=== PATIENT | female | born 1945 ===

== ENCOUNTER 2019-02-03 12:08 | Inpatient (IN) | payer MEDICARE, OTHER ==
[2019-02-03 12:09] VITALS: BMI 35.2
--- NOTE | 2019-02-03 12:42 | C.PDOC ---
History Of Present Illness 73 y/o female presents to the ED via ambulance for complaints of SOB and cough for 1 week. She was transferred from Dr. Gilman office today due to worsening SOB and wheezing. Of note, patient recently completed a course of antibiotics. She is s/p nebulizer treatments en route. On arrival to the ED patient reports feeling better. Otherwise she denies any fever, chills, abdominal pain, chest pain, calf pain or swelling. Time Seen by Provider: 02/03/19 12:41 Chief Complaint (Nursing): Shortness Of Breath History Per: Patient History/Exam Limitations: no limitations Onset/Duration Of Symptoms: Days Current Symptoms Are (Timing): Better Initiating Event: Upper Respiratory Illness Past Medical History Reviewed: Historical Data, Nursing Documentation, Vital Signs Vital Signs: Last Vital Signs Temp 98.3 F 02/03/19 12:20 Pulse 110 H 02/03/19 12:20 Resp 18 02/03/19 12:20 BP 112/77 02/03/19 12:20 Pulse Ox 93 L 02/03/19 12:20 - Medical History PMH: Bronchitis, HTN, Hypercholesterolemia Denies: Colonic Polyps Surgical History: Denies: Endoscopy Family History: States: No Known Family Hx - Social History Hx Alcohol Use: No Hx Substance Use: No - Immunization History Hx Tetanus Toxoid Vaccination: No Hx Influenza Vaccination: Yes Hx Pneumococcal Vaccination: No Review Of Systems Constitutional: Negative for: Fever, Chills Eyes: Negative for: Vision Change Cardiovascular: Negative for: Chest Pain, Palpitations Respiratory: Positive for: Cough, Shortness of Breath. Negative for: Hemoptysis Gastrointestinal: Negative for: Nausea, Vomiting, Abdominal Pain, Diarrhea Musculoskeletal: Negative for: Back Pain Neurological: Negative for: Weakness, Numbness, Dizziness Physical Exam - Physical Exam Appears: Non-toxic, No Acute Distress, Other (96% SpO2 on 2L) Skin: Warm, Dry, No Rash Head: Atraumatic, Normacephalic Eye(s): bilateral: Normal Inspection, PERRL, EOMI Oral Mucosa: Moist Neck: Normal ROM, Supple Chest: Symmetrical Respiratory: No Accessory Muscle Use, Rhonchi (diffusely), Other (Dry occasional cough, No retractions) Gastrointestinal/Abdominal: Soft, No Tenderness, No Distention Extremity: Bilateral: Atraumatic, No Pedal Edema, Normal Color And Temperature Pulses: Left Radial: Normal, Right Radial: Normal Neurological/Psych: Oriented x3, Normal Speech ED Course And Treatment ECG: Interpreted By Me ECG Rhythm: Sinus Tachycardia ECG Interpretation: Abnormal Rate From EC O2 Sat by Pulse Oximetry: 93 Pulse Ox Interpretation: Abnormal Progress - Re-Evaluation Re-evaluation Note: 02/03/19 12:44 D/W DR GABRIEL: SEVERE WHEEZING DURING OFFICE EVAL, NEBS GIVEN IN OFFICE. NO HO ASTHMA, COPD. - Data Reviewed Data Reviewed: Lab, Diagnostic imaging, EKG, Old records Medical Decision Making Medical Decision Making: Initial Plan: - VBG - Blood work - EKG - Chest x-ray - Placed on 2L O2 - 80 mg IV Solu-medrol - 3 ml INH Duoneb x1 - Reassess Disposition Counseled Patient/Family Regarding: Studies Performed, Diagnosis - Disposition Disposition Time: 13:00 Condition: STABLE Forms: [employer] (Guamanian) - Clinical Impression Clinical Impression: Dyspnea - Scribe Statement The provider has reviewed the documentation as recorded by the Carmel Weaver Provider Attestation: All medical record entries made by the Madhuibe were at my direction and personally dictated by me. I have reviewed the chart and agree that the record accurately reflects my personal performance of the history, physical exam, medical decision making, and the department course for this patient. I have also personally directed, reviewed, and agree with the discharge instructions and disposition. Physician Patient Turnover Patient Signed Over To: Tiarra Sanders Handoff Comments: FU LABS, CXR, DISPO
[2019-02-03] MEDS ORDERED: Albuterol-Ipratrop 3 mg / 0.5 (3 ml) UD IH STA (12:43)
[2019-02-03 13:07] LABS: BASO % 0.8 % (0.0-2.0); EOS % 0.3 % (0.0-4.0); HEMOGLOBIN 13.2 g/dL (11.0-16.0); LYMPH # 2.3 K/uL (1.0-4.3); LYMPH % 56.4 % (20.0-40.0); MEAN CORPUSCULAR HEMOGLOBIN 27.9 pg (27.0-31.0); MEAN CORPUSCULAR HGB CONC 32.8 g/dL (33.0-37.0); MONO # 0.7 K/uL (0.0-0.8); MONO % 15.9 % (0.0-10.0); NEUT # 1.1 K/uL (1.8-7.0); NEUT % 26.6 % (50.0-75.0); NRBC % 0.1 % (0.0-2.0); RBC 4.74 Mil/uL (3.80-5.20); WHITE BLOOD COUNT 4.1 K/uL (4.8-10.8)
[2019-02-03] MEDS ORDERED: MethylPREDNISolone 40 mg Vial ONE (13:15)
[2019-02-03 13:20] LABS: ALB/GLOB RATIO 1.2 (1.0-2.1); ALBUMIN 4.4 g/dL (3.5-5.0); ALT/SGPT 11 U/L (9-52); AST/SGOT 28 U/L (14-36); BLOOD UREA NITROGEN 15 mg/dL (7-17); CALCIUM 9.3 mg/dl (8.6-10.4); GFR NON-AFRICAN AMERICAN > 60
[2019-02-03 13:38] LABS: VENOUS BLOOD GAS BASE EXCESS -1.2 mmol/L (0.0-2.0); VENOUS BLOOD GAS PCO2 51 mmHg (40-60); VENOUS BLOOD GAS PO2 26 mm/Hg (30-55); VENOUS BLOOD PH 7.31 (7.32-7.43)
[2019-02-03] MEDS ORDERED: Potassium Chloride 20 mEq ER Tab PO STA (13:59)
[2019-02-03] MEDS ORDERED: Albuterol 0.083% Inhal Sol (2.5 mg/3 mL) UD IH STA ×2 (14:09)
--- NOTE | 2019-02-03 14:18 | RAD ---
Date of service: 02/03/2019 HISTORY: SOB COMPARISON: None available. TECHNIQUE: 1 view obtained. FINDINGS: LUNGS: Mild bibasilar atelectasis. PLEURA: No significant pleural effusion identified, no pneumothorax apparent. CARDIOVASCULAR: No aortic atherosclerotic calcification present. Cardiomegaly. No pulmonary vascular congestion. OSSEOUS STRUCTURES: No significant abnormalities. VISUALIZED UPPER ABDOMEN: Normal. OTHER FINDINGS: None. IMPRESSION: Mild bibasilar atelectasis.
[2019-02-03] MEDS ORDERED: Albuterol-Ipratrop 3 mg / 0.5 (3 ml) UD ONE (14:33)
[2019-02-03] MEDS ORDERED: Albuterol 0.083% Inhal Sol (2.5 mg/3 mL) UD ONE (14:42)
[2019-02-03] MEDS ORDERED: Potassium Chloride 20 mEq ER Tab PO ONE (15:24)
[2019-02-03] MEDS ORDERED: Albuterol-Ipratrop 3 mg / 0.5 (3 ml) UD INH STA (17:45)
[2019-02-03] MEDS ORDERED: Albuterol-Ipratrop 3 mg / 0.5 (3 ml) UD INH PRN (17:46)
[2019-02-03] MEDS: Azithromycin 500 MG in Sodium Chloride 0.9% 250 ML IVPB SCH (18:00)
[2019-02-03] MEDS: Enoxaparin 40 mg Syringe SC SCH (18:00)
[2019-02-03] MEDS: MethylPREDNISolone 40 mg Vial IV SCH (19:49)
[2019-02-03] MEDS ORDERED: Albuterol-Ipratrop 3 mg / 0.5 (3 ml) UD INH SCH (20:00)
[2019-02-03] MEDS: (Novolog) Insulin Aspart, Recombinant 100 u/ml 10 ml vial SC SCH (22:20)
[2019-02-04] MEDS: MethylPREDNISolone 40 mg Vial IV SCH ×2 (01:05→06:20)
[2019-02-04 07:55] LABS: BLOOD UREA NITROGEN 16 mg/dL (7-17); CALCIUM 9.9 mg/dl (8.6-10.4); GFR NON-AFRICAN AMERICAN > 60
[2019-02-04] MEDS: (Novolog) Insulin Aspart, Recombinant 100 u/ml 10 ml vial SC SCH ×4 (08:09→21:44)
[2019-02-04] MEDS: Pantoprazole 40 mg EC Tab PO SCH (09:22)
[2019-02-04] MEDS: Enoxaparin 40 mg Syringe SC SCH (09:22)
[2019-02-04] MEDS: Azithromycin 500 MG in Sodium Chloride 0.9% 250 ML IVPB SCH (17:10)
--- NOTE | 2019-02-04 18:49 | CP.PCM.HP ---
History of Present Illness - History of Present Illness History of Present Illness: cc; sob pt is a 73 year old female who presented to my office with status asthmaticus. Pt states she has been coughing up sptum and starting wheezing along with cough. Pt denies any prior history of asthma or wheezing. Pt was in respiratory distress in my office and EMS had to be called in. She was treated with nebs and oxygen and transferred to the ER. Today she states she feels better but still wheezing but not as severely. Pt states earlier when she ambulated she felt sob pt denies chest pain. pmhx DM and HTN social lives alone no tob or etoh Present on Admission - Present on Admission Any Indicators Present on Admission: No Review of Systems - Review of Systems Systems not reviewed;Unavailable: Respiratory Distress - Constitutional Constitutional: Chills, Fever - EENT Eyes: absent: Blurred Vision - Cardiovascular Cardiovascular: Dyspnea on Exertion. absent: Chest Pain, Edema - Respiratory Respiratory: Cough, Wheezing, Excessive Mucous Production, Change in Mucous Color. absent: Hemoptysis - Gastrointestinal Gastrointestinal: absent: Abdominal Pain, Diarrhea Past Patient History - Infectious Disease Hx of Infectious Diseases: None - Past Medical History & Family History Past Medical History?: Yes - Past Social History Smoking Status: Never Smoked - CARDIAC Hx Hypercholesterolemia: Yes Hx Hypertension: Yes - PULMONARY Hx Bronchitis: Yes - NEUROLOGICAL Hx Neurological Disorder: Yes Other/Comment: NEUROPATHY - HEENT Hx HEENT Problems: Yes Hx Cataracts: Yes (KATE. REMOVED) - ENDOCRINE/METABOLIC Hx Diabetes Mellitus Type 2: Yes - HEMATOLOGICAL/ONCOLOGICAL Hx Blood Transfusions: No - MUSCULOSKELETAL/RHEUMATOLOGICAL Hx Musculoskeletal Disorders: Yes Hx Back Pain: Yes Hx Falls: Yes (2010; USES CANE) Hx Herniated Disk: Yes (3 CERVICAL; 3 LOW BACK FROM FALL 2010) Hx Unsteady Gait: Yes - GASTROINTESTINAL Hx Gastrointestinal Disorders: No - PSYCHIATRIC Hx Substance Use: No - SURGICAL HISTORY Hx Surgeries: Yes Hx Cataract Extraction: Yes (KATE.) Hx Tubal Ligation: Yes Other/Comment: "KADEN BRADLEY" - ANESTHESIA Hx Anesthesia: Yes Hx Anesthesia Reactions: No Hx Malignant Hyperthermia: No Meds Allergies/Adverse Reactions: Allergies Allergy/AdvReac Type Severity Reaction Status Date / Time No Known Allergies Allergy Verified 02/03/19 12:22 Physical Exam - Constitutional Appears: Non-toxic, No Acute Distress - Eye Exam Eye Exam: Normal appearance - ENT Exam ENT Exam: Mucous Membranes Moist - Neck Exam Neck exam: Positive for: Normal Inspection - Respiratory Exam Respiratory Exam: Wheezes, NORMAL BREATHING PATTERN. absent: Rales, Respiratory Distress, Stridor - Cardiovascular Exam Cardiovascular Exam: REGULAR RHYTHM, RRR, +S1, +S2. absent: JVD - GI/Abdominal Exam GI & Abdominal Exam: Normal Bowel Sounds, Soft. absent: Tenderness Results - Vital Signs Recent Vital Signs: Last Vital Signs Temp 98.0 F 02/04/19 07:30 Pulse 102 H 02/04/19 15:24 Resp 18 02/04/19 07:30 BP 133/70 02/04/19 09:22 Pulse Ox 96 02/04/19 12:00 - Labs Result Diagrams: 02/03/19 13:01 02/04/19 07:17 Labs: Laboratory Results - last 24 hr 02/03/19 02/04/19 02/04/19 22:11 07:17 12:03 Sodium 135 Potassium 3.9 Chloride 101 Carbon Dioxide 25 Anion Gap 13 BUN 16 Creatinine 0.7 Est GFR ( Amer) > 60 Est GFR (Non-Af Amer) > 60 POC Glucose (mg/dL) 198 H 141 H Random Glucose 149 H D Calcium 9.9 02/04/19 16:31 Sodium Potassium Chloride Carbon Dioxide Anion Gap BUN Creatinine Est GFR ( Amer) Est GFR (Non-Af Amer) POC Glucose (mg/dL) 126 H Random Glucose Calcium Assessment & Plan - Assessment and Plan (Free Text) Assessment: New onset asthma with acute exacerbation and acute bronchitis Diabets htn cont iv steroids inhalers add singulair DM: monitor sugars on steroids bp is stable dvt and gi prophylaxis
[2019-02-05 01:11] VITALS: RESP 20
[2019-02-05] MEDS: Albuterol-Ipratrop 3 mg / 0.5 (3 ml) UD INH SCH ×4 (01:21→19:36)
[2019-02-05] MEDS: Budesonide 0.5 mg/2 ml Inhal Susp UD INH SCH ×2 (07:30→19:35)
[2019-02-05 08:02] LABS: BLOOD UREA NITROGEN 25 mg/dL (7-17); CALCIUM 9.7 mg/dl (8.6-10.4); GFR NON-AFRICAN AMERICAN > 60
[2019-02-05] MEDS: (Novolog) Insulin Aspart, Recombinant 100 u/ml 10 ml vial SC SCH ×4 (08:02→21:25)
[2019-02-05] MEDS: Enoxaparin 40 mg Syringe SC SCH (10:02)
[2019-02-05] MEDS: Pantoprazole 40 mg EC Tab PO SCH (10:03)
--- NOTE | 2019-02-05 12:28 | CP.PCM.PN ---
Subjective - Date & Time of Evaluation Date of Evaluation: 02/05/19 Time of Evaluation: 12:28 - Subjective Subjective: pt co feeling congested still significant wheezing no fever +cough +congested no chest pain Objective - Vital Signs/Intake and Output Vital Signs (last 24 hours): Temp Pulse Resp BP Pulse Ox 98.3 F 94 H 20 124/70 95 02/05/19 05:00 02/05/19 07:34 02/05/19 05:00 02/05/19 11:12 02/05/19 05:00 - Medications Medications: Current Medications Albuterol/Ipratropium (Duoneb 3 Mg/0.5 Mg (3 Ml) Ud) 3 ml INH Q4H PRN PRN Reason: Shortness of Breath Last Admin: 02/03/19 20:01 Dose: 3 ml Albuterol/Ipratropium (Duoneb 3 Mg/0.5 Mg (3 Ml) Ud) 3 ml INH RQ6 [facility] Last Admin: 02/05/19 07:48 Dose: Not Given Aspirin (Ecotrin) 81 mg PO DAILY [facility] Last Admin: 02/05/19 10:04 Dose: 81 mg Budesonide (Pulmicort Respules) 0.5 mg INH RQ12 [facility] Last Admin: 02/05/19 07:30 Dose: 0.5 mg Carvedilol (Coreg) 3.125 mg PO BID [facility] Last Admin: 02/05/19 10:04 Dose: 3.125 mg Enalapril Maleate (Vasotec) 10 mg PO DAILY [facility] Last Admin: 02/05/19 11:12 Dose: 10 mg Enoxaparin Sodium (Lovenox) 40 mg SC DAILY [facility] Last Admin: 02/05/19 10:02 Dose: 40 mg Gabapentin (Neurontin) 300 mg PO BID [facility] Last Admin: 02/05/19 10:02 Dose: 300 mg Azithromycin 500 mg/ Sodium (Chloride) 250 mls @ 250 mls/hr IVPB DAILY@1800 [facility]; Protocol Stop: 02/05/19 18:59 Last Admin: 02/04/19 17:10 Dose: 250 mls/hr Insulin Aspart (Novolog) 0 unit SC [facility]; Protocol Last Admin: 02/05/19 12:04 Dose: Not Given [facility] Last Admin: 02/05/19 08:09 Dose: 500 mg Methylprednisolone (Solu-Medrol) 60 mg IVP Q6H [facility] Last Admin: 02/05/19 06:24 Dose: 60 mg Montelukast Sodium (Singulair) 10 mg PO [facility] Last Admin: 02/04/19 21:44 Dose: 10 mg Pantoprazole Sodium (Protonix Ec Tab) 40 mg PO DAILY [facility] Last Admin: 02/05/19 10:03 Dose: 40 mg Pramipexole Dihydrochloride (Mirapex) 0.25 mg PO [facility] Last Admin: 02/04/19 21:44 Dose: 0.25 mg Rosuvastatin Calcium (Crestor) 10 mg PO [facility] Last Admin: 02/04/19 21:44 Dose: 10 mg - Labs Labs: 02/03/19 13:01 02/05/19 07:29 - Constitutional Appears: Non-toxic - Eye Exam Eye Exam: Normal appearance - ENT Exam ENT Exam: Mucous Membranes Moist - Respiratory Exam Respiratory Exam: Prolonged Expiratory Phase, Wheezes - Cardiovascular Exam Cardiovascular Exam: REGULAR RHYTHM, RRR, +S1, +S2. absent: JVD - GI/Abdominal Exam GI & Abdominal Exam: Soft, Normal Bowel Sounds. absent: Tenderness Assessment and Plan - Assessment and Plan (Free Text) Assessment: Asthma exacerbation acute bronchitis htn DM pt still with significant wheezing and CRAIG will upgrade to admit cont nebs and steroids bp stable dm; cont to monitor sugars
--- NOTE | 2019-02-05 14:07 | CARD ---
APPROVED REPORT Date of service: 02/03/2019 EKG Measurement Heart [id number] [id number] <Conclusion> Sinus tachycardia Otherwise normal ECG
[2019-02-05] MEDS: Azithromycin 500 MG in Sodium Chloride 0.9% 250 ML IVPB SCH (17:35)
[2019-02-06] MEDS: Albuterol-Ipratrop 3 mg / 0.5 (3 ml) UD INH SCH ×4 (02:56→20:14)
[2019-02-06] MEDS: (Novolog) Insulin Aspart, Recombinant 100 u/ml 10 ml vial SC SCH ×4 (07:32→21:41)
[2019-02-06] MEDS: Budesonide 0.5 mg/2 ml Inhal Susp UD INH SCH ×2 (07:51→20:14)
[2019-02-06] MEDS: Enoxaparin 40 mg Syringe SC SCH (09:41)
[2019-02-06] MEDS: Pantoprazole 40 mg EC Tab PO SCH (09:41)
--- NOTE | 2019-02-06 11:15 | CP.PCM.PN ---
Subjective - Date & Time of Evaluation Date of Evaluation: 02/06/19 Time of Evaluation: 11:15 - Subjective Subjective: Pt reports she is starting to feel better today was able to get out of bed and bathe, not as much wheezing but still present Objective - Vital Signs/Intake and Output Vital Signs (last 24 hours): Temp Pulse Resp BP Pulse Ox 98.7 F 87 20 123/65 95 02/06/19 07:00 02/06/19 08:00 02/06/19 07:00 02/06/19 09:41 02/06/19 07:00 - Medications Medications: Current Medications Albuterol/Ipratropium (Duoneb 3 Mg/0.5 Mg (3 Ml) Ud) 3 ml INH Q4H PRN PRN Reason: Shortness of Breath Last Admin: 02/03/19 20:01 Dose: 3 ml Albuterol/Ipratropium (Duoneb 3 Mg/0.5 Mg (3 Ml) Ud) 3 ml INH RQ6 [facility] Last Admin: 02/06/19 07:51 Dose: 3 ml Aspirin (Ecotrin) 81 mg PO DAILY [facility] Last Admin: 02/06/19 09:41 Dose: 81 mg Budesonide (Pulmicort Respules) 0.5 mg INH RQ12 [facility] Last Admin: 02/06/19 07:51 Dose: 0.5 mg Carvedilol (Coreg) 3.125 mg PO BID [facility] Last Admin: 02/06/19 09:41 Dose: 3.125 mg Enalapril Maleate (Vasotec) 10 mg PO DAILY [facility] Last Admin: 02/06/19 09:41 Dose: 10 mg Enoxaparin Sodium (Lovenox) 40 mg SC DAILY [facility] Last Admin: 02/06/19 09:41 Dose: 40 mg Gabapentin (Neurontin) 300 mg PO BID [facility] Last Admin: 02/06/19 09:41 Dose: 300 mg Insulin Aspart (Novolog) 0 unit SC [facility]; Protocol Last Admin: 02/06/19 07:32 Dose: Not Given [facility] Last Admin: 02/06/19 08:07 Dose: 500 mg Methylprednisolone (Solu-Medrol) 60 mg IVP Q6H [facility] Last Admin: 02/06/19 06:21 Dose: 60 mg Montelukast Sodium (Singulair) 10 mg PO [facility] Last Admin: 02/05/19 21:25 Dose: 10 mg Pantoprazole Sodium (Protonix Ec Tab) 40 mg PO DAILY [facility] Last Admin: 02/06/19 09:41 Dose: 40 mg Pramipexole Dihydrochloride (Mirapex) 0.25 mg PO [facility] Last Admin: 02/05/19 21:22 Dose: 0.25 mg Rosuvastatin Calcium (Crestor) 10 mg PO [facility] Last Admin: 02/05/19 22:05 Dose: 10 mg - Labs Labs: 02/03/19 13:01 02/05/19 07:29 - Constitutional Appears: Non-toxic - Eye Exam Eye Exam: Normal appearance - ENT Exam ENT Exam: Mucous Membranes Moist - Respiratory Exam Respiratory Exam: Prolonged Expiratory Phase, Wheezes - Cardiovascular Exam Cardiovascular Exam: REGULAR RHYTHM, RRR, +S1, +S2. absent: JVD - GI/Abdominal Exam GI & Abdominal Exam: Soft, Normal Bowel Sounds - Skin Skin Exam: Dry, Intact, Normal Color Assessment and Plan - Assessment and Plan (Free Text) Assessment: acute bronchitis asthma exacerbation Diabetes pt still with wheezing but improved cont iv steroids will arrange for home pump nebulizer I taught her who to use spacer today, never had asthma in the past family at bed side
[2019-02-07] MEDS: Albuterol-Ipratrop 3 mg / 0.5 (3 ml) UD INH SCH ×3 (01:16→13:30)
[2019-02-07 07:32] LABS: HEMOGLOBIN 11.8 g/dL (11.0-16.0); LYMPH # 0.9 K/uL (1.0-4.3); LYMPH % 10.7 % (20.0-40.0); MEAN CELL VOLUME 85.8 fL (81.0-99.0); MEAN CORPUSCULAR HGB CONC 33.8 g/dL (33.0-37.0); MONO # 0.2 K/uL (0.0-0.8); MONO % 2.3 % (0.0-10.0); NEUT # 7.6 K/uL (1.8-7.0); NRBC % 0.1 % (0.0-2.0); RBC 4.08 Mil/uL (3.80-5.20); RED CELL DISTRIBUTION WIDTH 14.1 % (11.5-14.5)
[2019-02-07 07:34] LABS: WHITE BLOOD COUNT 8.7 K/uL (4.8-10.8)
[2019-02-07] MEDS: (Novolog) Insulin Aspart, Recombinant 100 u/ml 10 ml vial SC SCH ×2 (07:44→12:06)
[2019-02-07 07:57] VITALS: TEMP 98.3; O2SAT 95
[2019-02-07 08:06] LABS: ALB/GLOB RATIO 1.2 (1.0-2.1); ALBUMIN 3.5 g/dL (3.5-5.0); ALT/SGPT 8 U/L (9-52); AST/SGOT 19 U/L (14-36); BLOOD UREA NITROGEN 23 mg/dL (7-17); CALCIUM 8.8 mg/dl (8.6-10.4); GFR NON-AFRICAN AMERICAN > 60
[2019-02-07] MEDS: Budesonide 0.5 mg/2 ml Inhal Susp UD INH SCH (08:20)
[2019-02-07] MEDS ORDERED: Benzocaine/Menthol (Cepacol) Lozenge MT PRN (08:29)
--- NOTE | 2019-02-07 08:44 | CP.PCM.DIS ---
Provider - Provider Date of Admission: 02/05/19 12:48 Attending physician: Maria Luisa Mcnamara MD Time Spent in preparation of Discharge (in minutes): 30 Hospital Course - Lab Results Lab Results: Micro Results 02/03/19 20:10 Blood-Venous Blood Culture - Preliminary NO GROWTH AFTER 3 DAYS 02/03/19 19:49 Blood-Venous Blood Culture - Preliminary NO GROWTH AFTER 3 DAYS Most Recent Lab Values WBC 8.7 K/uL (4.8-10.8) D 02/07/19 07:19 RBC 4.08 Mil/uL (3.80-5.20) 02/07/19 07:19 Hgb 11.8 g/dL (11.0-16.0) 02/07/19 07:19 Hct 35.1 % (34.0-47.0) 02/07/19 07:19 MCV 85.8 fL (81.0-99.0) 02/07/19 07: MCH 29.0 pg (27.0-31.0) 02/07/19 07: MCHC 33.8 g/dL (33.0-37.0) 02/07/19 07:19 RDW 14.1 % (11.5-14.5) 02/07/19 07:19 Plt Count 268 K/uL (130-400) 02/07/19 07:19 MPV 9.0 fL (7.2-11.7) 02/07/19 07:19 Neut % (Auto) 87.0 % (50.0-75.0) H 02/07/19 07:19 Lymph % (Auto) 10.7 % (20.0-40.0) L 02/07/19 07:19 Mcdonald % (Auto) 2.3 % (0.0-10.0) 02/07/19 07: Eos % (Auto) 0.0 % (0.0-4.0) 02/07/19 07:19 Baso % (Auto) 0.0 % (0.0-2.0) 02/07/19 07:19 Neut # (Auto) 7.6 K/uL (1.8-7.0) H 02/07/19 07:19 Lymph # (Auto) 0.9 K/uL (1.0-4.3) L 04/20/19 07:19 Mcdonald # (Auto) 0.2 K/uL (0.0-0.8) 02/07/19 07:19 Eos # (Auto) 0.0 K/uL (0.0-0.7) 02/07/19 07:19 Baso # (Auto) 0.0 K/uL (0.0-0.2) 02/07/19 07:19 pO2 26 mm/Hg (30-55) L 02/03/19 13:30 VBG pH 7.31 (7.32-7.43) L 02/03/19 13:30 VBG pCO2 51 mmHg (40-60) 02/03/19 13:30 VBG HCO3 22.5 mmol/L 02/03/19 13:30 VBG Total CO2 27.3 mmol/L (22-28) 02/03/19 13:30 VBG O2 Sat (Calc) 54.3 % (40-65) 02/03/19 13:30 VBG Base Excess -1.2 mmol/L (0.0-2.0) L 02/03/19 13:30 VBG Potassium 4.1 mmol/L (3.6-5.2) 02/03/19 13:30 Sodium 138.0 mmol/l (132-148) 02/03/19 13:30 Chloride 105.0 mmol/L (98-107) 02/03/19 13:30 Glucose 103 mg/dl (65-105) 02/03/19 13:30 Lactate 1.8 mmol/L (0.7-2.1) 02/03/19 13:30 Sodium 134 mmol/L (132-148) 02/07/19 07:19 Potassium 3.6 mmol/L (3.6-5.2) 02/07/19 07:19 Chloride 99 mmol/L (98-107) 02/07/19 07:19 Carbon Dioxide 28 mmol/L (22-30) 02/07/19 07:19 Anion Gap 10 (10-20) 02/07/19 07:19 BUN 23 mg/dL (7-17) H 02/07/19 07:19 Creatinine 0.7 mg/dL (0.7-1.2) 02/07/19 07:19 Est GFR ( Amer) > 60 02/07/19 07:19 Est GFR (Non-Af Amer) > 60 02/07/19 07:19 POC Glucose (mg/dL) 171 mg/dL (65-110) H 02/06/19 20:50 Random Glucose 122 mg/dL (65-105) H 02/07/19 07:19 Calcium 8.8 mg/dl (8.6-10.4) 02/07/19 07:19 Phosphorus 3.6 mg/dL (2.5-4.5) 02/05/19 07:29 Magnesium 2.1 mg/dL (1.6-2.3) 02/05/19 07:29 Total Bilirubin 0.3 mg/dL (0.2-1.3) 02/07/19 07:19 AST 19 U/L (14-36) 02/07/19 07:19 ALT 8 U/L (9-52) L D 02/07/19 07:19 Alkaline Phosphatase 65 U/L (38-126) 02/07/19 07:19 Total Protein 6.4 g/dL (6.3-8.3) 02/07/19 07:19 Albumin 3.5 g/dL (3.5-5.0) D 02/07/19 07:19 Globulin 2.9 gm/dL (2.2-3.9) 02/07/19 07:19 Albumin/Globulin Ratio 1.2 (1.0-2.1) 02/07/19 07:19 Venous Blood Potassium 4.1 mmol/L (3.6-5.2) 02/03/19 13:30 - Hospital Course Hospital Course: Pt was admitted with ashthma exacerbation ( first episode), severe also treated for bronchitis pt responded well to steroids and nebs as well as antibiotics Discharge Exam - Eye Exam Eye Exam: Normal appearance - ENT Exam ENT Exam: Mucous Membranes Dry - Respiratory Exam Respiratory Exam: Clear to PA & Lateral. absent: Rales - Cardiovascular Exam Cardiovascular Exam: REGULAR RHYTHM, +S1, +S2. absent: JVD Discharge Plan - Discharge Medications Prescriptions: Benzocaine/Menthol [Cepacol Sore Throat] 1 katie MT QID 10 Days katie - Follow Up Plan Condition: STABLE Instructions: Heart Healthy Diet, High Blood Pressure (DC), Diabetes Diet , Dyspnea (GEN) Referrals: Maria Luisa Mcnamara MD [Staff Provider] -
[2019-02-07 09:06] VITALS: PULSE 90
[2019-02-07] MEDS: Enoxaparin 40 mg Syringe SC SCH (09:23)
[2019-02-07] MEDS: Pantoprazole 40 mg EC Tab PO SCH (09:23)
[2019-02-07 09:25] VITALS: BP 144/69
[2019-02-07] MEDS ORDERED: Benzocaine/Menthol (Cepacol) Lozenge MT SCH (10:00)
== END 2019-02-07 13:39 | disposition home or self-care (01) | DRG 203 ==
LOC: C.ER 12:08 → C.9E 14:57 → C.6T 16:05 → OBSVTOIN 02-05 12:48
PROVIDERS: ADMIT Internal Medicine; ATTEND Internal Medicine
DX: J45.902 Unspecified asthma with status asthmaticus (principal); J20.9 Acute bronchitis, unspecified; E11.9 Type 2 diabetes mellitus without complications; I10 Essential (primary) hypertension; E78.00 Pure hypercholesterolemia, unspecified; Z98.42 Cataract extraction status, left eye; Z98.41 Cataract extraction status, right eye; Z98.51 Tubal ligation status